=== PATIENT | female | born 1980 | race Two or more races ===

== ENCOUNTER → 2024-05-03 | Outpatient (BNVA) | payer MEDICAID, SELFPAY | END | disposition home or self-care (01) | PROVIDERS: PCP Nurse Practitioner Primary Care; Referring Provider Nurse Practitioner Primary Care; Visit Provider Nurse Practitioner Primary Care | DX: E66.9 Obesity, unspecified (principal); Z68.35 Body mass index [BMI] 35.0-35.9, adult; Z71.2 Person consulting for explanation of examination or test findings; R73.03 Prediabetes; Z71.3 Dietary counseling and surveillance | CPT/HCPCS: 99214 ==

== ENCOUNTER → 2024-05-29 | Outpatient (BNVA) | payer MEDICAID, SELFPAY | END | disposition home or self-care (01) | PROVIDERS: PCP Nurse Practitioner Family; Referring Provider Nurse Practitioner Family; Visit Provider Nurse Practitioner Family | DX: R73.03 Prediabetes (principal); Z71.3 Dietary counseling and surveillance; Z68.41 Body mass index [BMI] 40.0-44.9, adult; E66.9 Obesity, unspecified | CPT/HCPCS: 99213 ==

== ENCOUNTER → 2024-07-11 | Outpatient (BNVA) | payer MEDICAID, SELFPAY | END | disposition home or self-care (01) | PROVIDERS: PCP Nurse Practitioner Primary Care; Referring Provider Nurse Practitioner Primary Care; Visit Provider Nurse Practitioner Primary Care | DX: R73.03 Prediabetes (principal); Z71.3 Dietary counseling and surveillance; E66.9 Obesity, unspecified; Z68.35 Body mass index [BMI] 35.0-35.9, adult | CPT/HCPCS: 99213 ==

== ENCOUNTER 2024-07-20 15:03 | Emergency (ER) | payer MEDICAID, SELFPAY ==
[2024-07-20 15:03] VITALS: BMI 38.0
[2024-07-20 15:39] VITALS: BP 128/80; PULSE 60; RESP 18; TEMP 36.9; O2SAT 98
--- NOTE | 2024-07-20 16:17 | PD.EDURI ---
Upper Respiratory Inf. RME/HPI General Chief Complaint: Flu Like Symptoms Stated Complaint: flu like symptoms x 1 day Time Seen by Provider: 07/20/24 15:11 Source: patient Arrival date/time: 07/20/24 15:03 This is a 43y f here with URI flu-like symptoms that began yesterday. +bodyaches, sorethroat. Has been taking OTC mucinex, no relief of symptoms. Mode of arrival: ambulatory Limitations: no limitations Related Data Previous Rx's ?Medication ?Instructions ?Recorded tirzepatide 12.5 mg/0.5 mL 12.5 mg (0.5 mL) subcut QWEEK 4 07/11/24 subcutaneous pen injector weeks #2 mL ibuprofen 800 mg tablet (IBU) 800 mg PO Q8H #20 tabs 07/20/24 oseltamivir 75 mg capsule (Tamiflu) 75 mg PO BID 5 days #10 caps 07/20/24 Allergies Allergy/AdvReac Type Severity Reaction Status Date / Time No Known Allergies Allergy Verified 07/11/24 13:02 Review of Systems Review of Systems Systems Reviewed: All systems reviewed, normal except as documented Narrative Review of Systems: Gen: No fever, no chills, no weight loss,+bodyache EYES: No discharge, no visual changes, no pain HEENT: No ear pain, no congestion, + sore throat PULM: No shortness of breath, no cough, no congestion CV: No chest pain, no dyspnea on exertion, no palpitations GI: No nausea, no vomiting, no diarrhea, no pain, no constipation : No frequency, no urgency,? no dysuria Musc/skel: No joint pain, no back pain Skin: No rash? Psyc: No hallucinations, no depression Heme/Lymph: No easy bleeding or bruising tendencies Neuro: No weakness, no headache ED Exam General Limitations: Present no limitations General appearance: Present alert and in no apparent distress Head Head exam: Present atraumatic Eye Eye exam: Present normal appearance, PERRL and EOMI ENT ENT exam: Present normal exam, normal oropharynx and mucous membranes moist Neck Neck exam: Present normal inspection, full ROM and trachea midline Chest Chest inspection: Present normal inspection and symmetric chest wall rise Respiratory Respiratory exam: Present normal lung sounds bilaterally Cardiovascular Cardiovascular exam: Present regular rate, normal rhythm and normal heart sounds Abdominal Exam Abdominal exam: Present soft and normal bowel sounds Extremities Exam Extremities exam: Present normal inspection and full ROM Back Exam Back exam: Present normal inspection and full ROM Neurological Exam Neurological exam: Present alert, oriented X3 and CN II-XII intact Psychiatric Psychiatric exam: Present normal affect and normal mood Skin Skin exam: Present warm, dry, intact and normal color Course Quality Measures none Orders Category Date Time Status Bedside COVID-19 Antigen Test NOW Care 07/20/24 15:11 Completed Bedside Influenza A&B Antigen Test NOW Care 07/20/24 15:11 Completed Vital Signs Vital signs: Vital Signs Temperature 98.5 F 07/20/24 15:39 Pulse Rate 60 07/20/24 15:39 Respiratory Rate 18 07/20/24 15:39 Blood Pressure 128/80 07/20/24 15:39 Pulse Oximetry (%) 98 07/20/24 15:39 Oxygen Delivery Method Room Air 07/20/24 15:39 Upper Respiratory Infection MDM Narrative MDM Narrative:: Patient presents with symptoms and exam consistent with influenza. Tamiflu sent pharmacy.? Patient is non-toxic appearing, appears to be well-hydrated and is breathing comfortably, without respiratory distress. Doubt pneumonia given lungs CTAB. Patient is appropriate for outpatient management with anti-pyretics and supportive care. Patient is comfortable with plan. Patient to follow up with PMD in 2 days. Strict return to ED precautions given. ?Patient verbalized understanding. Patient data External records reviewed:: [facility] previous records Clinical information provided by:: none Social determinants that could affect healthcare access:: none Patient has the following chronic illnesses:: no How is presenting disease/condition affected by chronic disease/condition?: no chronic disease Evaluation data The following diagnostics were reviewed and interpreted by me:: lab results Lab and/or radiology exams considered but not ordered:: chest xray -lung ctab Interpretation Summary: +FLU a Medications / Prescriptions Medications or Prescriptions considered but not ordered:: no abx, viral syndrome Medication administrations:: no Consultations Consultation(s) initiated? (list below): No Diagnosis Upper Respiratory Differential Diagnosis: upper respiratory infection, sinusitis, viral infection, bronchitis and influenza Most likely diagnosis given after review of the tests above:: FLU Admission Indicated Admission indicated?: not indicated Admission Request Was there a request for admission?: No Disposition Plan Disposition Plan: Discharge Discharge Attestation Discharge Attestation: The patient and all family members were given an opportunity to ask questions and understood the discharge instructions. Discharge instructions specifically effects, indications for sooner follow up or return to the emergency department, and the expected course of current diagnosis. Patient condition: Stable Discharge Plan Plan Patient Disposition: HOME (Self Care) Patient condition on transfer: Stable Prescriptions/Referrals Prescriptions/Med Rec: New oseltamivir [Tamiflu] 75 mg capsule 75 mg PO BID 5 Days Qty: 10 0RF ibuprofen [IBU] 800 mg tablet 800 mg PO Q8H Qty: 20 0RF No Action tirzepatide 12.5 mg/0.5 mL pen injector 12.5 mg subcut QWEEK 28 Days Qty: 2 0RF Rx Instructions: Medication increased Problem List Clinical Impression: Influenza A Patient/Caregiver Discharge Instructions Discharge Activity: activity as tolerated Education Materials: The Flu (Influenza) Additional Instructions: You can continue [id number] Mucinex Start ibuprofen for body aches and fever. Start your Tamiflu for 5 days twice a day Increase fluid intake. Follow-up with your primary doctor who is me! ;) Return to the emergency department if there is any worsening symptoms or change in condition. Print Language: Vietnamese Stand Alone Forms: Lakia Award Info., Work/School Release, Patient Portal Info Letter PA/KELLY Supervising Physician SANDRA/KELLY Supervising Physician: Dr Jo
== END 2024-07-20 16:30 | disposition home or self-care (01) ==
LOC: SERX 16:28
PROVIDERS: Emergency Provider Emergency Medicine
DX: J10.1 Influenza due to other identified influenza virus with other respiratory manifestations (principal)
CPT/HCPCS: 87400; 87811; 99283

== ENCOUNTER → 2024-07-26 | Outpatient (BNVA) | payer MEDICAID, SELFPAY | END | disposition home or self-care (01) | PROVIDERS: PCP Nurse Practitioner Primary Care; Referring Provider Nurse Practitioner Primary Care; Visit Provider Nurse Practitioner Primary Care | DX: J20.9 Acute bronchitis, unspecified (principal) | CPT/HCPCS: 94640; 99212; A9270 ==

== ENCOUNTER 2024-09-12 13:36 | Emergency (ER) | payer MEDICAID, SELFPAY ==
[2024-09-12 13:37] VITALS: BMI 38.2
[2024-09-12 13:54] VITALS: BP 129/79; PULSE 84; RESP 16; TEMP 37.2; O2SAT 99
--- NOTE | 2024-09-12 14:01 | XR_ITS ---
Examination: Breast ultrasound, unilateral, left Date and time of exam: September 12, 2024 1505 hrs. Indications: Left breast pain and possible month with redness today, family history, sister, breast cancer Technique: Real-time schwartz scale ultrasonographic imaging performed left breast including all 4 quadrants as well as nipple retroareolar and axillary region. Findings: 1:00 cyst 9 x 7 mm 3:00 cyst 9 x 10 mm 3:00 cyst 10 x 16 mm Atrophy of the left breast at the area concern 4:00 position poorly defined with possible early abscess measuring 3.5 x 1.6 cm Impression: Findings most consistent with early abscess in the 4:00 position left breast, inflammatory breast carcinoma not excluded Short-term follow-up left breast imaging strongly recommended during and post antibiotic therapy
--- NOTE | 2024-09-12 14:01 | PD.EDADULT ---
ED General RME/HPI General Chief complaint: General Adult/Misc Complain Stated complaint: PAIN L) BREAST, LUMP ON L) BREAST THIS AM Time Seen by Provider: 09/12/24 14:02 Source: patient Arrival date/time: 09/12/24 13:36 44-year-old female with no known medical history presents to the emergency room with a chief complaint of pain and tenderness to her left breast. Patient also states that she developed a lump around her areola since this morning. Mode of arrival: ambulatory Limitations: no limitations Related Data Previous Rx's ?Medication ?Instructions ?Recorded ibuprofen 800 mg tablet (IBU) 800 mg PO Q8H #20 tabs 07/20/24 albuterol sulfate 90 mcg/actuation 2 inh inhalation Q6H PRN shortness 07/26/24 aerosol inhaler of breath or wheezing #8.5 grams amoxicillin 875 mg-potassium 1 tab PO Q12H #14 tabs 07/26/24 clavulanate 125 mg tablet loratadine 10 mg tablet 10 mg PO Q24H #30 tabs 07/26/24 promethazine-DM 6.25 mg-15 mg/5 mL 5 ml PO Q6H PRN cough #473 mL 07/26/24 oral syrup sulfamethoxazole 800 1 tab PO BID 14 days #28 tabs 09/12/24 mg-trimethoprim 160 mg tablet (Bactrim DS) Allergies Allergy/AdvReac Type Severity Reaction Status Date / Time No Known Allergies Allergy Verified 09/12/24 13:39 Review of Systems Review of Systems Systems Reviewed: All systems reviewed, normal except as documented Constitutional Constitutional: Reports system reviewed and no additional complaints, except as documented, Denies fatigue, Denies fever(s), Denies headache(s) and Denies weakness Eyes Eyes: Reports system reviewed and no additional complaints, except as documented, Denies blurry vision and Denies change in vision ENT Ears, Nose, Mouth, and Throat: Reports system reviewed and no additional complaints, except as documented, Denies otalgia, Denies headache(s), Denies nasal congestion, Denies throat swelling and Denies vertigo Cardiovascular Cardiovascular: Reports system reviewed and no additional complaints, except as documented, Denies chest pain, Denies dyspnea and Denies dyspnea on exertion Respiratory Respiratory: Reports system reviewed and no additional complaints, except as documented, Denies chest congestion, Denies cough, Denies dyspnea, Denies dyspnea on exertion and Denies wheezing Gastrointestinal Gastrointestinal: Reports system reviewed and no additional complaints, except as documented, Denies abdominal pain, Denies cramping, Denies nausea and Denies vomiting Genitourinary Genitourinary: Reports system reviewed and no additional complaints, except as documented and Reports nipple discharge Musculoskeletal Musculoskeletal: Reports system reviewed and no additional complaints, except as documented and Denies back pain Integumentary/Breasts Skin/Breast: Reports system reviewed and no additional complaints, except as documented, Reports rash, Reports wounds, Reports breast mass, Reports breast pain, Reports breast swelling and Reports nipple discharge Neurologic Neurologic: Reports system reviewed and no additional complaints, except as documented, Denies confusion, Denies headache(s), Denies lack of coordination, Denies vertigo and Denies weakness Psychiatric Psychiatric: Reports system reviewed and no additional complaints, except as documented, Denies anxiety, Denies confusion, Denies depression, Denies paranoia, Denies suicidal ideation and Denies tactile hallucinations Endocrine Endocrine: Reports system reviewed and no additional complaints, except as documented and Denies fatigue Hematologic/Lymphatic Hematologic/Lymphatic: Reports system reviewed and no additional complaints, except as documented and Denies lymphadenopathy Allergic/Immunologic Allergic/Immunologic: Reports system reviewed and no additional complaints, except as documented, Denies throat swelling, Denies urticaria and Denies wheezing ED Exam General Limitations: Present no limitations General appearance: Present alert and in no apparent distress Head Head exam: Present atraumatic Eye Eye exam: Present normal appearance, PERRL and EOMI ENT ENT exam: Present normal exam, normal oropharynx and mucous membranes moist Neck Neck exam: Present normal inspection, full ROM and trachea midline Chest Chest inspection: Present normal inspection and symmetric chest wall rise Expanded Chest Exam Breast: left: erythema, swelling, tenderness, mass and nipple discharge Respiratory Respiratory exam: Present normal lung sounds bilaterally Cardiovascular Cardiovascular exam: Present regular rate, normal rhythm and normal heart sounds Abdominal Exam Abdominal exam: Present soft and normal bowel sounds Extremities Exam Extremities exam: Present normal inspection and full ROM Back Exam Back exam: Present normal inspection and full ROM Neurological Exam Neurological exam: Present alert, oriented X3 and CN II-XII intact Psychiatric Psychiatric exam: Present normal affect and normal mood Skin Skin exam: Present warm, dry, intact and normal color Course Quality Measures none Orders Category Date Time Status US breast LT complete Stat Exams 09/12/24 14:01 Completed CBC Stat Lab 09/12/24 14:27 Completed CMP [Comprehensive Metabolic Panel] Stat Lab 09/12/24 14:27 Completed Hemoglobin A1C [Glycohemoglobin w (eAG)] Stat Lab 09/12/24 14:27 Completed Vital Signs Vital signs: Vital Signs Temperature 98.9 F 09/12/24 13:54 Pulse Rate 84 09/12/24 13:54 Respiratory Rate 16 09/12/24 13:54 Blood Pressure 129/79 09/12/24 13:54 Pulse Oximetry (%) 99 09/12/24 13:54 Oxygen Delivery Method Room Air 09/12/24 13:54 O2 saturation 99% within normal limits [facility] Patient data External records reviewed:: [facility] previous records Clinical information provided by:: patient Social determinants that could affect healthcare access:: none Patient has the following chronic illnesses:: No chronic illness How is presenting disease/condition affected by chronic disease/condition?: no chronic disease Evaluation data The following diagnostics were reviewed and interpreted by me:: lab results and radiology exam(s) Lab and/or radiology exams considered but not ordered:: Labs and radiology exams considered and ordered yes Interpretation Summary: Ultrasound left breast-Findings: 1:00 cyst 9 x 7 mm 3:00 cyst 9 x 10 mm 3:00 cyst 10 x 16 mm Atrophy of the left breast at the area concern 4:00 position poorly defined with possible early abscess measuring 3.5 x 1.6 cm Impression: Findings most consistent with early abscess in the 4:00 position left breast, inflammatory breast carcinoma not excluded Short-term follow-up left breast imaging strongly recommended during and post antibiotic therapy Medications Medications considered but not ordered:: Rx given Medication administrations:: Rx given Consultations Consultation(s) initiated? (list below): Yes Consultation #1 (Physician, Specialty, Details): Dr. Livingston-hospitalist on-call Time: 17:00 Diagnosis Differential Diagnosis ED Complaint MDM: Mastitis/abscess/cellulitis Most likely diagnosis given after review of the tests above:: Abscess to the left breast Admission Indicated Admission indicated?: not indicated Explain why admission is indicated or not indicated:: N/A Admission Request Was there a request for admission?: Yes Admission Attestation Admission request attestation: Discussed case with Dr. Livingston from Hospitalist service regarding admission. Discussed patients ED course, exam findings, labs, and radiology results. The Hospitalist states that the a trial of antibiotics will be tried first and if this patient's signs or symptoms get worse she will return to the emergency room immediately Disposition Plan Disposition Plan: Discharge Discharge Attestation Discharge Attestation: The patient and all family members were given an opportunity to ask questions and understood the discharge instructions. Discharge instructions specifically effects, indications for sooner follow up or return to the emergency department, and the expected course of current diagnosis. Patient condition: Stable Medical Decision Making MDM Narrative MDM Narrative: 44-year-old female with no known medical history presents to the emergency room with a chief complaint of pain and tenderness to her left breast. Patient also states that she developed a lump around her areola since yesterday morning. Patient is hemodynamically stable. There is no tachycardia no tachypnea and she is afebrile. Physical examination shows tenderness erythema and warmth to the left breast. Patient states the symptoms began yesterday morning and has progressed since then. Patient states her last mammogram and ultrasound were 2 months ago and everything was normal. An ultrasound of the breast was completed and found multiple small abscesses. The hospitalist team was consulted and Dr. Livingston came down to evaluate the patient. Based on his recommendations he states that a trial of antibiotics can be completed first before an IR drainage is needed. Dr. Livingston myself and the patient talked about the situation and the patient agreed to take antibiotics and return to the emergency room for any evidence of worsening signs or symptoms. The patient has a follow-up appointment with her primary care provider. Patient was discharged and educated to follow-up with primary care provider in the next 24 to 48 hours and return to the emergency room for any evidence of worsening signs or symptoms Differential Diagnosis Differential Diagnosis: Mastitis/abscess/cellulitis Lab Data 09/12/24 14:27 09/12/24 14:27 Labs: Lab Results 09/12/24 Range/Units 14:27 WBC 14.5 H (3.6-11.0) Thou/mm3 RBC 4.40 (4.00-5.20) Miln/mm3 Hgb 12.7 (12.0-16.0) g/dL Hct 37.3 (36.0-46.0) % MCV 85 (80-100) fL MCH 28.9 (25.0-35.0) pg MCHC 34.0 (31.0-37.0) g/dl RDW Std Deviation 42.2 (36.4-46.3) fL Plt Count 184 (140-440) Thou/mm3 Neut % (Auto) 79 (37-80) % Lymph % (Auto) 16 (10-50) % Davie % (Auto) 3 (0-12) % Eos % (Auto) 1 (0-10) % Baso % (Auto) 0 (0-2.5) % Neut # (Auto) 11.5 H (1.8-7.7) Thou/mm3 Lymph # (Auto) 2.4 (1.0-4.8) Thou/mm3 Davie # (Auto) 0.5 (0.0-0.8) Thou/mm3 Eos # (Auto) 0.1 (0.0-0.5) Thou/mm3 Baso # (Auto) 0.0 (0.0-0.2) Thou/mm3 Immature Gran # (Auto) 0.06 H (0.00-0.00) Thou/mm3 Absolute Nucleated RBC 0.00 (0.00-0.00) Thou/mm3 Immature Gran % 0 (0-0) % Nucleated RBC % 0 (0) /100 WBC Sodium 139 (136-145) mMol/L Potassium 3.4 (3.4-5.1) mMol/L Chloride 106 (98-107) mMol/L Carbon Dioxide 23.7 (20.0-31.0) mMol/L Anion Gap 9 (7-16) BUN 9 (9-23) mg/dL Creatinine 0.8 (0.6-1.3) mg/dL Estim Creat Clear Calc 100.1 (>60) mL/min eGFR > 60 (60 - ) See Note BUN/Creatinine Ratio 11 L (12-20) Ratio Glucose 196 H (74-106) mg/dL Estimated Ave Glu mg/dL 108 (80-131) mg/dL Hemoglobin A1c 5.4 (4.8-6.0) % Hgb Calculated Osmolality 281 (275-295) Calcium 8.8 (8.3-10.6) mg/dL Corrected Calcium 8.8 (8.5-10.1) mg/dL Total Bilirubin 0.5 (0.3-1.2) mg/dL AST 22 (0-34) U/L ALT 40 (10-49) U/L Alkaline Phosphatase 114 (46-116) U/L Total Protein 7.3 (5.7-8.2) gm/dL Albumin 4.3 (3.5-5.0) gm/dL Globulin 3.0 (2.3-3.5) gm/dL Albumin/Globulin Ratio 1.4 (1.2-2.2) Discharge Plan Plan Patient Disposition: HOME (Self Care) Disposition Comment: Stable Prescriptions/Referrals Prescriptions/Med Rec: New sulfamethoxazole-trimethoprim [Bactrim DS] 800-160 mg tablet 1 tab PO BID 14 Days Qty: 28 0RF No Action amoxicillin-pot clavulanate 875-125 mg tablet 1 tab PO Q12H Qty: 14 0RF promethazine-DM 6.25-15 mg/5 mL syrup 5 ml PO Q6H PRN (Reason: cough) Qty: 473 0RF albuterol sulfate 90 mcg/actuation HFA aerosol inhaler 2 inh inhalation Q6H PRN (Reason: shortness of breath or wheezing) Qty: 8.5 0RF loratadine 10 mg tablet 10 mg PO Q24H Qty: 30 0RF ibuprofen [IBU] 800 mg tablet 800 mg PO Q8H Qty: 20 0RF Referrals: Laura ([facility]),KELLY Michelle [Primary Care Provider] - In 1 week Problem List Clinical Impression: Abscess of breast, left Patient/Caregiver Discharge Instructions Education Materials: ED Abscess Antibiotic ... Additional Instructions: Please follow-up with your primary care provider in the next 24 to 48 hours. Antibiotics are sent to your pharmacy please pick them up and take them as indicated. The hospitalist team came and evaluated your abscess and at this time they recommended you to have a trial of antibiotic therapy. If your signs and symptoms get worse, if you begin to have drainage from your nipple, worsening redness or pain please return to the emergency room immediately for drainage of this abscess. For any evidence of worsening signs or symptoms return to the emergency room immediately Print Language: Kinyarwanda Stand Alone Forms: Lakia Award Info., Patient Portal Info Letter SANDRA/KELLY Supervising Physician SANDRA/KELLY Supervising Physician: Dr. Padilla
[2024-09-12 14:39] LABS: Basophils % (Auto) 0 % (0-2.5); Eosinophils # (Auto) 0.1 Thou/mm3 (0.0-0.5); Eosinophils % (Auto) 1 % (0-10); Hematocrit 37.3 % (36.0-46.0); Hemoglobin 12.7 g/dL (12.0-16.0); Immature Granulocytes % (Auto) 0 % (0-0); Immature Granulocytes Auto 0.06 Thou/mm3 (0.00-0.00); Lymphocytes # (Auto) 2.4 Thou/mm3 (1.0-4.8); Lymphocytes % (Auto) 16 % (10-50); Mean Corpuscular Hemoglobin 28.9 pg (25.0-35.0); Mean Corpuscular Volume 85 fL (80-100); Monocytes # (Auto) 0.5 Thou/mm3 (0.0-0.8); Monocytes % (Auto) 3 % (0-12); Neutrophils # (Auto) 11.5 Thou/mm3 (1.8-7.7); Neutrophils % (Auto) 79 % (37-80); Nucleated Red Blood Cell % 0 /100 WBC (0); Platelet Count 184 Thou/mm3 (140-440); RDW Standard Deviation 42.2 fL (36.4-46.3); White Blood Count 14.5 Thou/mm3 (3.6-11.0)
[2024-09-12 14:59] LABS: Alanine Aminotransferase 40 U/L (10-49); Albumin, Serum 4.3 gm/dL (3.5-5.0); Albumin/Globulin Ratio 1.4 (1.2-2.2); Alkaline Phosphatase 114 U/L (46-116); Anion Gap 9 (7-16); Aspartate Amino Transferase 22 U/L (0-34); BUN/Creatinine Ratio 11 Ratio (12-20); Bilirubin,Total 0.5 mg/dL (0.3-1.2); Blood Urea Nitrogen 9 mg/dL (9-23); Calcium 8.8 mg/dL (8.3-10.6); Calcium (Corrected) 8.8 mg/dL (8.5-10.1); Carbon Dioxide 23.7 mMol/L (20.0-31.0); Chloride 106 mMol/L (98-107); Creatinine (Component) 0.8 mg/dL (0.6-1.3); Estimated Creatinine Clearance 100.1 mL/min (>60); Glucose 196 mg/dL (74-106); Osmolality,Calculated 281 (275-295); Potassium 3.4 mMol/L (3.4-5.1); Sodium 139 mMol/L (136-145); Total Protein 7.3 gm/dL (5.7-8.2); eGFR > 60 See Note
--- NOTE | 2024-09-12 17:12 | PC.NURSE ---
REMBERTO chaperroned by DEVYN Syed during breast exam
[2024-09-12 17:59] LABS: Glucose Estimated Average 108 mg/dL (80-131); Hemoglobin A1C 5.4 % Hgb (4.8-6.0)
--- NOTE | 2024-09-12 18:08 | PD.RESEVENT ---
Documentation for date of: 09/12/24 Event Note Event Note: Ms. Dianna Palomares is a 44-year-old lady with no significant past medical history who presented to the ED due to a chief complaint of left breast tenderness. The patient states that her symptoms started on the morning of presentation to the ED. On initial evaluation to the ED, her vitals were within normal limits. Initial labs were only significant for a elevated WBC of 14.5 and a mildly elevated glucose of 196 with an A1c of 5.4%. Patient underwent a breast ultrasound which revealed a early abscess at the 4 o'clock position with possible early abscess measured as 3.5 x 1.6 cm. Admission was requested as IR was unavailable to perform a drainage of the abscess. Upon my evaluation, the patient appeared nonseptic. Physical exam did not reveal any axillary lymph nodes. The left breast did not appear erythematous although there was some mild tenderness noticed around the areola of the left breast. As the patient is not septic appearing with only a mild leukocytosis, recommended that the patient be discharged with p.o. antibiotics with close follow-up with PCP. Recommend the patient to be discharged on a 7-day course of trimethoprim?sulfamethoxazole p.o. Patient stated she had an upcoming appointment with her PCP. ALso recommended that she undergo further workup for her pre-diabetes. Patient was counseled on strict return precautions should her symptoms worsen whic she verbalised understanding. Patient's case was discussed with supervising attending physician Dr. Yara Solano M.D. Internal Medicine PGY-3
== END 2024-09-12 18:00 | disposition home or self-care (01) ==
LOC: SERX 14:32 → ED 15:57 → SERX 15:57
PROVIDERS: Nurse Practitioner Family; Emergency Provider Emergency Medicine; PCP Nurse Practitioner Primary Care
DX: N61.1 Abscess of the breast and nipple (principal)
CPT/HCPCS: 36415; 76641; 80053; 83036; 85025; 99284

== ENCOUNTER → 2024-09-15 | Outpatient (BNVA) | payer MEDICAID, SELFPAY | END | disposition home or self-care (01) | PROVIDERS: PCP Nurse Practitioner Primary Care; Referring Provider Nurse Practitioner Primary Care; Visit Provider Nurse Practitioner Primary Care | DX: N61.1 Abscess of the breast and nipple (principal); N63.10 Unspecified lump in the right breast, unspecified quadrant; N63.20 Unspecified lump in the left breast, unspecified quadrant | CPT/HCPCS: 96372; 99214; A4216; J0696 ==

== ENCOUNTER → 2024-09-18 | Outpatient (CLI) | payer MEDICAID, SELFPAY ==
--- NOTE | 2024-09-18 | XR_ITS ---
Examination: Breast ultrasound complete, bilateral Date and time of exam: September 18, 2024 0714 hours INDICATIONS: Left breast pain redness palpable lump, abscess 4:00 position left breast on left breast sonogram September 12, 2024 Technique: Real-time grayscale ultrasonographic imaging bilateral breasts, including all 4 quadrants as well as nipple retroareolar and axillary regions. Findings: Sonographic images right breast 12:00 nodule lobular margins 11 x 10 mm 6:00 cyst 12 x 9 mm 8:00 cyst 15 x 17 mm Sonographic images left breast Benign cyst 3:00 nodule lobular margins 12 x 12 mm 3:00 nodule lobular margins but irregular margins 16 x 15 mm series 5:00 nodule indistinct margins 15 x 13 mm 3:00 cyst 9 x 11 mm IMPRESSION: BI-RADS: Category 4 suspicious for malignancy Suspicious masses 3:00 position left breast, 16 x 15 mm, suspicious mass 5:00 position left breast 15 x 13 mm Biopsy of these masses is needed to exclude breast carcinoma under ultrasound guidance
== END | disposition home or self-care (01) ==
LOC: CDIM 06:57
PROVIDERS: PCP Nurse Practitioner Primary Care; Referring Provider Nurse Practitioner Primary Care; Visit Provider Nurse Practitioner Primary Care
DX: N63.25 Unspecified lump in the left breast, overlapping quadrants (principal); N63.23 Unspecified lump in the left breast, lower outer quadrant
CPT/HCPCS: 76641

== ENCOUNTER → 2024-09-21 | Outpatient (BNVA) | payer MEDICAID, SELFPAY | END | disposition home or self-care (01) | PROVIDERS: PCP Nurse Practitioner Primary Care; Referring Provider Nurse Practitioner Primary Care; Visit Provider Nurse Practitioner Primary Care | DX: N61.1 Abscess of the breast and nipple (principal) ==

== ENCOUNTER → 2024-09-25 | Outpatient (CLI) | payer MEDICAID, SELFPAY ==
--- NOTE | 2024-09-25 | XR_ITS ---
Examination: Breast ultrasound, unilateral, left complete Date and time of exam: September 17, 2024 0828 hours INDICATIONS: Breast sonography September 18, 2024 right breast 12:00 nodule 11 x 10 mm left breast 3:00 nodule 12 x 12 mm 3:00 nodule 16 x 15 mm 5:00 nodule 15 x 13 mm Technique: Real-time schwartz scale ultrasonographic imaging performed left breast including all 4 quadrants as well as nipple retroareolar and axillary region. Findings: Multiple benign cysts 3:00 oval mass circumscribed 9 x 8 mm 4:00 oval mass indistinct margins 20 x 11 mm 5:00 irregular mass 13 x 21 mm IMPRESSION: Abnormal appearing nodules in the fourth of 5:00 position left breast which may represent abscesses, clinical correlation advised, these may represent abscesses Recommend short-term follow-up to do 3 month follow-up left breast sonography
== END | disposition home or self-care (01) ==
LOC: CDIM 07:36
PROVIDERS: PCP Nurse Practitioner Family; Referring Provider Nurse Practitioner Family; Visit Provider Nurse Practitioner Family
DX: N63.23 Unspecified lump in the left breast, lower outer quadrant (principal)
CPT/HCPCS: 76641

== ENCOUNTER → 2024-09-27 | Outpatient (BNVA) | payer MEDICAID, SELFPAY | END | disposition home or self-care (01) | PROVIDERS: PCP Nurse Practitioner Primary Care; Referring Provider Nurse Practitioner Primary Care; Visit Provider Nurse Practitioner Primary Care | DX: N61.1 Abscess of the breast and nipple (principal); N60.01 Solitary cyst of right breast; N60.02 Solitary cyst of left breast | CPT/HCPCS: 99214 ==

== ENCOUNTER → 2024-12-14 | Outpatient (BNVA) | payer MEDICAID, SELFPAY | END | disposition home or self-care (01) | PROVIDERS: PCP Nurse Practitioner Primary Care; Referring Provider Nurse Practitioner Primary Care; Visit Provider Nurse Practitioner Primary Care | DX: H50.9 Unspecified strabismus (principal); H50.00 Unspecified esotropia; Z23 Encounter for immunization | CPT/HCPCS: 90471; 90715; 99173; 99214 ==

== ENCOUNTER → 2025-02-27 | Outpatient (BNVA) | payer MEDICAID, SELFPAY | END | disposition home or self-care (01) | PROVIDERS: PCP Nurse Practitioner Family; Referring Provider Nurse Practitioner Family; Visit Provider Nurse Practitioner Family | DX: H50.9 Unspecified strabismus (principal); H50.00 Unspecified esotropia | CPT/HCPCS: 93005; 99214 ==

== ENCOUNTER → 2025-03-07 | Outpatient (BNVA) | payer MEDICAID, SELFPAY | END | disposition home or self-care (01) | PROVIDERS: PCP Nurse Practitioner Primary Care; Referring Provider Nurse Practitioner Primary Care; Visit Provider Nurse Practitioner Primary Care | DX: H50.9 Unspecified strabismus (principal); H50.00 Unspecified esotropia; E66.9 Obesity, unspecified; Z68.39 Body mass index [BMI] 39.0-39.9, adult; Z71.3 Dietary counseling and surveillance; Z28.21 Immunization not carried out because of patient refusal | CPT/HCPCS: 99213 ==

== ENCOUNTER → 2025-03-12 | Outpatient (BNVA) | payer MEDICAID, SELFPAY | END | disposition home or self-care (01) | PROVIDERS: PCP Nurse Practitioner Primary Care; Referring Provider Nurse Practitioner Primary Care; Visit Provider Nurse Practitioner Primary Care | DX: Z00.01 Encounter for general adult medical examination with abnormal findings (principal); Z71.3 Dietary counseling and surveillance; K31.89 Other diseases of stomach and duodenum; Z13.220 Encounter for screening for lipoid disorders; Z11.3 Encounter for screening for infections with a predominantly sexual mode of transmission; Z01.01 Encounter for examination of eyes and vision with abnormal findings; R73.03 Prediabetes | CPT/HCPCS: 99396; G0439 ==

== ENCOUNTER → 2025-04-20 | Outpatient (BNVA) | payer MEDICAID, SELFPAY | END | disposition home or self-care (01) | PROVIDERS: PCP Nurse Practitioner Primary Care; Referring Provider Nurse Practitioner Primary Care; Visit Provider Nurse Practitioner Primary Care | DX: Z71.3 Dietary counseling and surveillance (principal); R73.03 Prediabetes; E78.2 Mixed hyperlipidemia | CPT/HCPCS: 99213 ==

== ENCOUNTER → 2025-05-22 | Outpatient (BNVA) | payer MEDICAID, SELFPAY | END | disposition home or self-care (01) | PROVIDERS: PCP Nurse Practitioner Primary Care; Referring Provider Nurse Practitioner Primary Care; Visit Provider Nurse Practitioner Primary Care | DX: K59.00 Constipation, unspecified (principal); E66.812 Obesity, class 2; Z68.38 Body mass index [BMI] 38.0-38.9, adult | CPT/HCPCS: 99213 ==